=== PATIENT | male | born 1960 ===

== ENCOUNTER → 2023-12-05 02:39 | Outpatient (CLI) | payer BC, SELFPAY ==
--- NOTE | 2023-12-05 | ETT_ITS ---
APPROVED REPORT Exam: Exercise Treadmill Patient Location: Out-Patient Room/Bed: Stress Nurse: Jacey Collins RN and Marianne Price RN Ordering Provider:BEVERLY KG, Contact Number: [phone] BMI: 31.94 Baseline Rhythm: Sinus Rhythm,, RBBB. Indications: Unspecified Atrial Fibrillation. Medical History Medical History: Atrial Fibrillation; BPH; Hyperlipidemia. Cardiac Medications: Aspirin. Allergies: None. Cardiac Risk Factors: Family Hx; Hyperlipidemia; Former Smoker. Previous Cardiac Procedures: Cardioversion on 11/14/23. Pretest Chest Pain Characteristics: None. Exercise History: Physically active. Physical Disabilities: None. Lung Sounds: Clear bilaterally throughout, anterior and posterior. Heart Sounds: S1 and S2 auscultated. Stress Test Details Test: Exercise stress testing was performed using a Isai protocol. Rest Stress HR Resting HR Supine: 64 bpm Max Heart Rate (APMHR): 157 bpm Resting HR Standin bpm Target HR (85% APMHR): 133 bpm Max HR Achieved: 146 bpm % of APMHR: 93 Recovery HR: 82 bpm HR response to stress: Normal HR response to stress. BP Resting BP Supine: 116/72 mmHg Resting BP Standin/76 mmHg Max BP: 164/72 mmHg Recovery BP: 122/82 mmHg BP response to stress: Normal blood pressure response to stress. ECG Resting ECG: Sinus Rhythm, RBBB. Ectopy: None. Stress ECG: Sinus Tachycardia, RBBB. ST Change: No significant ST segment changes noted. Arrhythmia: None. Recovery ECG: Sinus Rhythm, RBBB. Recovery ST Change: No significant ST segment changes noted. Recovery Arrhythmia: None. Clinical Reason for Termination: Target HR Achieved Stress Symptoms: None. Exercise duration: 09 min34 sec Highest Stage Reached: Stage 3: 3.4 mph at 14% grade. Exercise capacity: 11.10 METs Angina Score: None Roblero Treadmill Score: 9.0 Rate Pressure Product: [id number] Stress ECG Conclusion 1. Resting electrocardiogram showed right bundle branch block 2. Patient exercised on the Isai protocol and completed a workload of 11.1 METS 3. Normal heart rate and blood pressure response to exercise. Patient achieved 93% of predicted hear t rate for age 4. There was no electrocardiographic evidence of myocardial ischemia 5. There were no dysrhythmias Roblero Treadmill Score is 9.0 which is Low risk. Stress Test Summary STAGE Time (mins) Speed (mph) Grade (%) HR BP SpO2 SYMPTOMS METS Supine 64 116/72 97 Standing 69 118/76 97 1 3 1.7 10 99 120/70 98 4.5 2 6 2.5 12 113 130/74 98 7 3 9 3.4 14 146 98 10 1 min recovery 119 164/72 98 3 min recovery 87 152/76 98 6 min recovery 82 122/82 98
== END ==
PROVIDERS: PCP Internal Medicine; Visit Provider Registered Nurse
DX: I48.91 Unspecified atrial fibrillation (principal); R06.00 Dyspnea, unspecified
CPT/HCPCS: 93017